=== PATIENT | male | born 1950 | race Two or more races ===

== ENCOUNTER 2017-03-25 05:21 | Inpatient (IN) | payer BC, OTHER ==
[~2017-03-25] VITALS: Ht 172.7 cm; Wt 81.0 kg
[2017-03-25] VITALS (16 sets, daily range): BP systolic 111–143; BP diastolic 53–85
[2017-03-25] MEDS ORDERED: ONDANSETRON HCL 4 MG/2 ML VIAL ONE (05:23)
[2017-03-25] MEDS ORDERED: MORPHINE SULF INJ 2 MG/ML SYRINGE 1ML ONE (05:23)
[2017-03-25] MEDS ORDERED: METOPROLOL TARTRATE 1MG/1ML-5ML VIAL IV ONE ×2 (05:30→17:00)
[2017-03-25] MEDS ORDERED: ONDANSETRON HCL 4 MG/2 ML VIAL IV ONE (05:30)
[2017-03-25] MEDS: MORPHINE SULF INJ 2 MG/ML SYRINGE 1ML IV PRN ×2 (05:41→17:58)
[2017-03-25 05:52] LABS: Basophils # (auto) 0.1 uL; Basophils % (auto) 0.8 % (0.0-2.0); Eosinophils # (auto) 0.1 uL; Eosinophils % (auto) 1.5 % (0.0-7.0); Hematocrit 33.2 % (41.0-53.0); Hemoglobin 10.7 g/dL (13.5-17.5); Lymphocytes # (auto) 1.5 uL; Lymphocytes % (auto) 17.1 % (10.0-50.0); Mean Corpuscular Hgb Conc. 32.1 g/dL (32.0-36.0); Mean Corpuscular Volume 102.8 fL (80.0-100.0); Mean Platelet Volume 9.6 fL (7.4-10.4); Monocytes # (auto) 0.4 uL; Monocytes % (auto) 4.3 % (0.0-12.0); Neutrophils # (auto) 6.6 uL; Neutrophils % (auto) 76.3 % (37.0-80.0); Nucleated Red Blood Cells % 0.1 %; Platelet Count (auto) 209 10^3/uL (140-450); Red Cell Distribution Width 16.9 % (11.6-16.0); White Blood Cell 8.7 10^3/uL (4.4-10.8)
[2017-03-25 06:06] LABS: Partial Thromboplastin Time 31.7 sec (22.64-33.71)
[2017-03-25 06:15] LABS: Temperature: 21.9 C (20.0-25.0)
[2017-03-25 06:18] LABS: Albumin 3.6 g/dL (3.4-5.0); Anion Gap 13 (5-15); Aspartate Aminotransferase 32 U/L (15-37); BUN/Creatinine Ratio 11.7; Blood Urea Nitrogen 71 mg/dL (7-18); Calcium 8.6 mg/dL (8.5-10.1); Carbon Dioxide 21 mmol/L (21-32); Chloride 107 mmol/L (98-107); GFR African American 12 mL/min; GFR Non-African American 10 mL/min; Glucose 102 mg/dL (74-106); Magnesium 2.2 mg/dL (1.6-2.6); Potassium 4.9 mmol/L (3.5-5.1); Sodium 141 mmol/L (136-145)
[2017-03-25 06:23] LABS: Alkaline Phosphatase 96 U/L (45-117); Bilirubin, Total 0.4 mg/dL (0.2-1.0); Total Protein 6.7 g/dL (6.4-8.2)
[2017-03-25] MEDS ORDERED: MET50T PO (06:25)
[2017-03-25] MEDS ORDERED: ONDA4TAB5 PO (06:25)
[2017-03-25] MEDS ORDERED: SUVO1TAB3 PO (06:25)
[2017-03-25] MEDS ORDERED: FURO40TA PO (06:25)
[2017-03-25] MEDS ORDERED: MORP30TA PO (06:25)
[2017-03-25] MEDS ORDERED: WARF6TAB21 PO (06:25)
[2017-03-25] MEDS ORDERED: ZINC220C8 PO (06:25)
[2017-03-25] MEDS ORDERED: HYDR-2650 PO (06:25)
[2017-03-25] MEDS ORDERED: FOLI1TAB6 PO (06:25)
[2017-03-25] MEDS ORDERED: LISI10TA6 PO (06:25)
[2017-03-25] MEDS ORDERED: CALC0.25 PO (06:25)
[2017-03-25] MEDS ORDERED: AMIO200T33 PO (06:25)
[2017-03-25] MEDS ORDERED: CLOP75TA28 PO (06:25)
[2017-03-25] MEDS ORDERED: LANS30CA63 PO (06:25)
[2017-03-25] MEDS ORDERED: FERR-7 PO (06:25)
[2017-03-25] MEDS ORDERED: SUCR5CHW PO (06:25)
[2017-03-25] MEDS ORDERED: NIFE90TA30 PO (06:25)
[2017-03-25] MEDS ORDERED: ASPI81CH43 PO (06:25)
[2017-03-25] MEDS ORDERED: CHOL20002 PO (06:25)
[2017-03-25] MEDS ORDERED: NITROGLYCERIN 0.4 MG SL TAB SL PRN (09:00)
[2017-03-25] MEDS ORDERED: LABETALOL HCL 5 MG/ML ML 20ML VIAL IV PRN (09:00)
[2017-03-25] MEDS ORDERED: MORPHINE SULF INJ 2 MG/ML SYRINGE 1ML IV PRN (09:00)
[2017-03-25] MEDS ORDERED: FUROSEMIDE 40 MG/4 ML VIAL IV ONE (09:00)
[2017-03-25] MEDS ORDERED: DEXTROSE (50%) 50ML SYRG IV PRN (09:45)
[2017-03-25] MEDS ORDERED: HYDROcodone-ACET 5/325MG TAB PO PRN (09:45)
[2017-03-25] MEDS ORDERED: ONDANSETRON HCL 4 MG/2 ML VIAL IV PRN (09:45)
[2017-03-25] MEDS ORDERED: PATIENTS OWN MEDICATION (Zinc Sulfate 220 MG) PO SCH (10:00)
[2017-03-25 10:04] LABS: Cholesterol 151 mg/dL (< 200); HDL Cholesterol 67 mg/dL (40-59); LDL Cholesterol 82 mg/dL (< 100); Triglycerides 73 mg/dL (< 150)
[2017-03-25] MEDS: ASPirin 81 mg TAB PO SCH (10:41)
[2017-03-25] MEDS: METOPROLOL TARTRATE 25 MG TAB PO SCH ×2 (10:42→22:46)
[2017-03-25] MEDS: PANTOPRAZOLE 40 MG TAB PO SCH (10:42)
[2017-03-25] MEDS: CALCITRIOL 0.25 MCG CAP PO SCH (10:43)
[2017-03-25] MEDS: CLOPIDOGREL BISULFATE 75 MG TAB PO SCH (10:43)
[2017-03-25] MEDS: ZINC SULFATE 220 MG CAP PO SCH (10:43)
[2017-03-25] MEDS: FUROSEMIDE 40 MG TAB PO SCH (10:43)
[2017-03-25] MEDS: InsuLIN REG 1unit/0.01ml Soln (100units/ml) SC SCH ×3 (11:30→22:46)
[2017-03-25] MEDS: ACCU-CHEK COMFORT CURVE STRIP VI SCH ×3 (11:30→22:46)
[2017-03-25] MEDS ORDERED: AMIODARONE HCL 200 MG TAB PO ONE (15:30)
[2017-03-25] MEDS ORDERED: WARFARIN SODIUM 2 MG TAB PO ONE (17:00)
[2017-03-25] MEDS ORDERED: WARFARIN SODIUM 2 MG TAB PO SCH (17:00)
[2017-03-25] MEDS ORDERED: AMIODARONE HCL 150 MG in D5W 5% 100 ML IV ONE (20:35)
[2017-03-25] MEDS ORDERED: AMIODARONE HCL 900 MG in DEXTROSE 500 ML IV SCH (20:45)
[2017-03-25] MEDS ORDERED: WARFARIN SODIUM 8 MG PO SCH (22:00)
[2017-03-26] VITALS (83 sets, daily range): BP systolic 107–159; BP diastolic 51–97
[2017-03-26] MEDS: HYDROmorphone HCL 2 MG/ML VL IV PRN ×5 (02:28→20:36)
[2017-03-26] MEDS ORDERED: AMIODARONE HCL 900 MG in DEXTROSE 500 ML IV SCH (02:45)
[2017-03-26 03:46] LABS: Basophils # (auto) 0 uL; Basophils % (auto) 0.4 % (0.0-2.0); Eosinophils # (auto) 0 uL; Eosinophils % (auto) 0.5 % (0.0-7.0); Hematocrit 30.2 % (41.0-53.0); Hemoglobin 9.7 g/dL (13.5-17.5); Lymphocytes % (auto) 11.2 % (10.0-50.0); Mean Corpuscular Hemoglobin 32.6 pg (28.0-32.0); Mean Corpuscular Volume 101.8 fL (80.0-100.0); Mean Platelet Volume 9.5 fL (7.4-10.4); Monocytes # (auto) 0.3 uL; Monocytes % (auto) 3.6 % (0.0-12.0); Neutrophils # (auto) 7.2 uL; Neutrophils % (auto) 84.3 % (37.0-80.0); Platelet Count (auto) 184 10^3/uL (140-450); Red Cell Distribution Width 16.6 % (11.6-16.0); White Blood Cell 8.6 10^3/uL (4.4-10.8)
[2017-03-26 03:59] LABS: INR 2.44 (0.9-1.15); Partial Thromboplastin Time 39.3 sec (22.64-33.71); Prothrombin Time 26.8 sec (9.37-12.3)
[2017-03-26 04:05] LABS: Albumin 3.2 g/dL (3.4-5.0); BUN/Creatinine Ratio 12.1; Bilirubin, Total 0.5 mg/dL (0.2-1.0); Calcium 8.6 mg/dL (8.5-10.1); Total Protein 5.9 g/dL (6.4-8.2)
[2017-03-26 04:10] LABS: Potassium 5.8 mmol/L (3.5-5.1)
[2017-03-26] MEDS: ACCU-CHEK COMFORT CURVE STRIP VI SCH ×4 (06:38→22:48)
[2017-03-26] MEDS: InsuLIN REG 1unit/0.01ml Soln (100units/ml) SC SCH ×4 (06:38→22:48)
[2017-03-26] MEDS: ENOXAPARIN SOD 40 MG/0.4 ML SYRINGE SC SCH (09:44)
[2017-03-26] MEDS: ASPirin 81 mg TAB PO SCH (09:44)
[2017-03-26] MEDS: PANTOPRAZOLE 40 MG TAB PO SCH (09:44)
[2017-03-26] MEDS: CLOPIDOGREL BISULFATE 75 MG TAB PO SCH (09:44)
[2017-03-26] MEDS: ZINC SULFATE 220 MG CAP PO SCH (09:44)
[2017-03-26] MEDS: METOPROLOL TARTRATE 25 MG TAB PO SCH (09:45)
[2017-03-26] MEDS: FUROSEMIDE 40 MG TAB PO SCH (09:45)
[2017-03-26] MEDS: CALCITRIOL 0.25 MCG CAP PO SCH (10:00)
[2017-03-26] MEDS ORDERED: NTG 0.1MG/HR TOPICAL PATCH TD SCH (10:00)
[2017-03-26] MEDS ORDERED: AMIODARONE HCL 200 MG TAB PO SCH (10:00)
[2017-03-26] MEDS ORDERED: METOPROLOL TARTRATE 25 MG TAB PO ONE (11:30)
[2017-03-26] MEDS ORDERED: EPOETIN ALFA 10,000 UNIT/1 ML VIAL IV ONE (13:30)
[2017-03-26] MEDS ORDERED: AMIODARONE HCL 200 MG TAB ONE (16:25)
[2017-03-26] MEDS ORDERED: WARFARIN SODIUM 2 MG TAB PO ONE (18:15)
[2017-03-26] MEDS: METOPROLOL TARTRATE 50 MG TAB PO SCH (22:49)
[2017-03-27] VITALS (9 sets, daily range): BP systolic 103–128; BP diastolic 52–72
[2017-03-27] MEDS ORDERED: TEMAZEPAM 15 MG CAP PO ONE (00:15)
[2017-03-27 04:32] LABS: Basophils # (auto) 0 uL; Basophils % (auto) 0.8 % (0.0-2.0); Eosinophils # (auto) 0.1 uL; Eosinophils % (auto) 1.9 % (0.0-7.0); Hematocrit 25.5 % (41.0-53.0); Hemoglobin 8.4 g/dL (13.5-17.5); Lymphocytes # (auto) 0.9 uL; Lymphocytes % (auto) 16.5 % (10.0-50.0); Mean Corpuscular Hemoglobin 32.9 pg (28.0-32.0); Mean Corpuscular Volume 99.7 fL (80.0-100.0); Mean Platelet Volume 9.6 fL (7.4-10.4); Monocytes # (auto) 0.4 uL; Monocytes % (auto) 8.1 % (0.0-12.0); Neutrophils # (auto) 3.9 uL; Neutrophils % (auto) 72.7 % (37.0-80.0); Platelet Count (auto) 142 10^3/uL (140-450); White Blood Cell 5.3 10^3/uL (4.4-10.8)
[2017-03-27 04:37] LABS: BUN/Creatinine Ratio 10.4; Calcium 8.1 mg/dL (8.5-10.1); INR 1.95 (0.9-1.15); Partial Thromboplastin Time 37.1 sec (22.64-33.71); Phosphorus 4.8 mg/dL (2.5-4.90); Potassium 4.3 mmol/L (3.5-5.1); Prothrombin Time 21.4 sec (9.37-12.3)
[2017-03-27] MEDS: InsuLIN REG 1unit/0.01ml Soln (100units/ml) SC SCH ×2 (06:40→11:30)
[2017-03-27] MEDS: ACCU-CHEK COMFORT CURVE STRIP VI SCH ×2 (06:40→11:50)
[2017-03-27] MEDS: HYDROmorphone HCL 2 MG/ML VL IV PRN (06:41)
[2017-03-27] MEDS: CALCITRIOL 0.25 MCG CAP PO SCH (10:00)
[2017-03-27] MEDS ORDERED: AMIODARONE HCL 200 MG TAB PO SCH (10:00)
[2017-03-27] MEDS: PANTOPRAZOLE 40 MG TAB PO SCH (10:27)
[2017-03-27] MEDS: CLOPIDOGREL BISULFATE 75 MG TAB PO SCH (10:27)
[2017-03-27] MEDS: ASPirin 81 mg TAB PO SCH (10:27)
[2017-03-27] MEDS: FUROSEMIDE 40 MG TAB PO SCH (10:27)
[2017-03-27] MEDS: ZINC SULFATE 220 MG CAP PO SCH (10:27)
[2017-03-27] MEDS: METOPROLOL TARTRATE 50 MG TAB PO SCH (10:28)
[2017-03-27] MEDS: ENOXAPARIN SOD 40 MG/0.4 ML SYRINGE SC SCH (10:28)
[2017-03-27] MEDS ORDERED: NITROGLYCERIN 0.4MG/HR TOPICAL PATCH TD ONE (11:45)
[2017-03-27] MEDS ORDERED: MORPHINE SULF INJ 2 MG/ML SYRINGE 1ML IV PRN (12:00)
[2017-03-27] MEDS ORDERED: WARFARIN SODIUM 2.5 MG TAB PO ONE (17:00)
[2017-03-27] MEDS ORDERED: WARFARIN SODIUM 5 MG TAB PO ONE (17:00)
[2017-03-28] MEDS ORDERED: NITROGLYCERIN 0.4MG/HR TOPICAL PATCH TD SCH (10:00)
== END 2017-03-27 16:03 | disposition home or self-care (01) | DRG 291 ==
LOC: EDBD 05:21 → ER 05:21 → TELE 05:22 → TELE-E-ADS 09:48 → ICU WEST 20:32
PROVIDERS: ADMIT Internal Medicine; ATTEND Internal Medicine
PROC: 5A1D00Z (ICD-10-PCS; principal; 2017-03-26)
DX: I13.2 Hypertensive heart and chronic kidney disease with heart failure and with stage 5 chronic kidney disease, or end stage renal disease (principal); N18.6 End stage renal disease; E11.22 Type 2 diabetes mellitus with diabetic chronic kidney disease; D68.69 Other thrombophilia; I48.0 Paroxysmal atrial fibrillation; E87.5 Hyperkalemia; I50.41 Acute combined systolic (congestive) and diastolic (congestive) heart failure; D64.9 Anemia, unspecified; I34.0 Nonrheumatic mitral (valve) insufficiency; I25.10 Atherosclerotic heart disease of native coronary artery without angina pectoris; Z95.2 Presence of prosthetic heart valve; I25.2 Old myocardial infarction; Z99.2 Dependence on renal dialysis; Z98.84 Bariatric surgery status; Z79.899 Other long term (current) drug therapy; Z85.038 Personal history of other malignant neoplasm of large intestine; Z95.5 Presence of coronary angioplasty implant and graft; Z79.84 Long term (current) use of oral hypoglycemic drugs; Z88.1 Allergy status to other antibiotic agents; Z88.0 Allergy status to penicillin; Z88.8 Allergy status to other drugs, medicaments and biological substances; Z90.49 Acquired absence of other specified parts of digestive tract; Z79.01 Long term (current) use of anticoagulants; Z71.3 Dietary counseling and surveillance
CPT/HCPCS: 36415; 71010; 80048; 80053; 80061; 82962; 83036; 83735; 83880; 84100; 84443; 84484; 85025; 85379; 85610; 85730; 87081; 90935; 93005; 93306; 96374; 96375; 99291; J0885; J2405; J7060